=== PATIENT | female | born 1975 | race Caucasian/White ===

== ENCOUNTER 2016-07-03 21:41 | Inpatient (IN) | payer MEDICAID ==
[~2016-07-03] VITALS: Ht 154.9 cm; Wt 95.1 kg
[~2016-07-03 21:41] MED LIST: CALC-143 PO; FERR27TA PO; PREN1TAB49 PO
[2016-07-03 21:48] VITALS: BP 145/85; PULSE 77; RESP 20; Ht 154.9 cm; Wt 95.1 kg
[2016-07-03] MEDS ORDERED: OXYTOCIN 30 UNITS/LR 500 ML IV SCH ×2 (23:00)
[2016-07-03] MEDS ORDERED: LACTATED RINGER'S 1,000 ML IV PRN (23:00)
[2016-07-03] MEDS ORDERED: BUTORPHANOL 2 MG INJ IV PRN ×2 (23:00)
[2016-07-03] MEDS ORDERED: MISOPROSTOL 200 MCG TAB PR PRN (23:00)
[2016-07-03] MEDS ORDERED: AMPICILLIN 2 GM/NS (PMX) 100 ML IV ONE (23:00)
[2016-07-03] MEDS ORDERED: LIDOCAINE 1% (MPF) 30 ML INJ INJ PRN (23:00)
[2016-07-03] MEDS ORDERED: ACETAMINOPHEN/CODEINE #3 TAB PO PRN (23:00)
[2016-07-03] MEDS ORDERED: OXYTOCIN 30 UNITS/LR 500 ML IV PRN (23:00)
[2016-07-03] MEDS ORDERED: METHYLERGONOVINE 0.2 MG INJ IM PRN (23:00)
[2016-07-03] MEDS ORDERED: IBUPROFEN 600 MG TAB PO PRN (23:00)
[2016-07-03] MEDS ORDERED: CARBOPROST 250 MCG INJ IM PRN (23:00)
[2016-07-03] MEDS: LACTATED RINGER'S 1,000 ML IV SCH (23:07)
[2016-07-03 23:42] LABS: BASOPHILS % 0.2 % (0.0-2.0); EOSINOPHILS # 0.1 10^3/ul (0.0-0.5); EOSINOPHILS % 1.5 % (0.0-7.0); HEMATOCRIT 36.4 % (37.0-47.0); HEMOGLOBIN 12.5 g/dl (12.0-16.0); LYMPHOCYTES # 1.4 10^3/ul (0.8-2.9); LYMPHOCYTES % 20.4 % (15.0-51.0); MEAN CORPUSCULAR HEMOGLOBIN 30.7 pg (29.0-33.0); MEAN CORPUSCULAR HGB CONC 34.2 g/dl (32.0-37.0); MEAN CORPUSCULAR VOLUME 89.6 fl (82.0-101.0); MEAN PLATELET VOLUME 8.3 fl (7.4-10.4); MONOCYTE # 0.5 10^3/ul (0.3-0.9); MONOCYTES % 7.9 % (0.0-11.0); NEUTROPHIL # 4.8 10^3/ul (1.6-7.5); PLATELET COUNT 235 10^3/UL (140-440); RED BLOOD COUNT 4.06 10^6/ul (4.20-5.40); RED CELL DISTRIBUTION WIDTH 14.6 % (11.5-14.5); UNCORRECTED WBC 6.8 10^3/ul (4.8-10.8); WHITE BLOOD COUNT 6.8 10^3/ul (4.8-10.8)
[2016-07-03 23:43] LABS: ADD UMIC YES; URINE BILIRUBIN (Dip) NEGATIVE (NEGATIVE); URINE BLOOD (Dip) 1+ (NEGATIVE); URINE COLOR LT. YELLOW (YELLOW); URINE GLUCOSE (Dip) NEGATIVE (NEGATIVE); URINE KETONES (Dip) NEGATIVE (NEGATIVE); URINE LEUKOCYTE ESTERASE (Dip) NEGATIVE (NEGATIVE); URINE NITRITE (Dip) NEGATIVE (NEGATIVE); URINE TOTAL PROTEIN (Dip) 1+ (NEGATIVE); URINE UROBILINOGEN (Dip) 0.2 E.U./dL (0.1-1.0)
[2016-07-03 23:46] LABS: CONDITION 1; LH ANALYZER COMMENTS 1
[2016-07-03 23:50] LABS: ALBUMIN 3.6 g/dl (3.3-4.9)
[2016-07-03 23:51] LABS: POTASSIUM 4.3 mmol/L (3.5-5.1)
[2016-07-03 23:52] LABS: INR 0.86; PARTIAL THROMBOPLASTIN TIME 26.4 Sec (25.0-35.0); PROTIME 11.7 Sec (12.2-14.2); PT RATIO 0.9
[2016-07-03 23:53] LABS: ALBUMIN/GLOBULIN RATIO 1.02; CALCIUM 9.2 mg/dl (8.4-10.2); CREATININE 0.6 mg/dl (0.44-1.00); TOTAL PROTEIN 7.1 g/dl (6.1-8.1)
[2016-07-04 00:28] LABS: BACTERIA,URINE FEW; SQUAMOUS EPITHELIAL CELL,UR MANY
--- NOTE | 2016-07-04 01:27 | TRIAGE ---
OB Triage Datetime Report Generated by CPN: 07/04/2016 01:27 Datetime: 07/04/2016 01:04 Vaginal Exam Dilatation (cms): 4.5 Effacement (%): 90 Station: -2 Exam By: NEWTON F. Membrane Status: Bulging Vaginal Bleeding: None Cervix, Consistency: Moderate Cervix, Position: Midposition Presentation 'A': Cephalic Datetime: 07/04/2016 01:02 Labor Evaluation Frequency: 3-4 Monitor Mode: External Duration (sec)2399: 50-60 Quality: Moderate Pattern: Normal: <= 5 Contractions in 10 Minutes Resting Tone [place]: Relaxed Contraction Comments: LONGER AND STRONGER UTCS REPORTED PER PT Datetime: 07/04/2016 00:35 Assessment Type: Admission Assessment Vaginal Bleeding: None Maternal Assessment Level of Consciousness: Fully Conscious DTR's/Clonus: DTRs 2+; No Clonus Headache: Denies Blurred Vision: No Respiratory Effort: Unlabored; Regular Rhythm; Equal Expansion Breath Sounds, Left: Clear and Equal Breath Sounds, Right: Clear and Equal Nausea/Vomiting: Denies RUQ Epigastric Pain: Denies Lower Extremities Edema: Bilateral Lower Extremities Degree: 1+ Upper Extremities Edema: None Degree: None Facial Edema: None Fall Risk Assessment History of Falling: (0) No Secondary Diagnosis: (0) No Ambulatory Aid: (0) Bedrest/Nurse Assist IV Therapy: (20) Yes Gait: (0) Normal/Bedrest/Immobile Mental Status: (0) Oriented to Own Ability Fall Score: 20 Fall Risk Score Definition: No Risk: No action required Labor Evaluation Frequency: 5-6 Duration (sec)2399: 40-50 Quality: Moderate Pattern: Normal: <= 5 Contractions in 10 Minutes Resting Tone [place]: Relaxed Heart Rate FHR Baseline Rate: 140 Variability: Moderate 6-25 bpm Accelerations: 15X15 Decelerations: None Category: Category I Pain Assessment Pain Scale: 8 Pain Presence: Intermittent Pain Type: Cramping; Contraction Pain Location: Abdomen; Back Pain Goal: 2 Vaginal Exam Dilatation (cms): 4.0 Effacement (%): 80 Station: -2 Membrane Status: Intact Datetime: 07/04/2016 00:06 Stage of : Labor Maternal Assessment Level of Consciousness: Fully Conscious DTR's/Clonus: DTRs 2+ Blurred Vision: No Respiratory Effort: Unlabored Breath Sounds, Left: Clear and Equal Breath Sounds, Right: Clear and Equal Nausea/Vomiting: Denies RUQ Epigastric Pain: Denies Labor Evaluation Frequency: 5 Monitor Mode: External Duration (sec)2399: 40-50 Quality: Moderate Pattern: Normal: <= 5 Contractions in 10 Minutes Resting Tone [place]: Relaxed Heart Rate FHR Baseline Rate: 130 Monitor Mode: External US FHR Baseline Changes: No Baseline Change Variability: Moderate 6-25 bpm Accelerations: 15X15 Decelerations: None Category: Category I Pain Assessment Pain Scale: 8 Pain Presence: Intermittent Pain Type: Dull; Ache Pain Location: Abdomen; Back Pain Goal: 2 Pain Relief Measures: Comfort Measures Membrane Status: Intact Datetime: 07/03/2016 23:10 Stage of : OB Triage Labor Evaluation Frequency: 3-7 Monitor Mode: External Duration (sec)2399: 80-150 Pattern: Normal: <= 5 Contractions in 10 Minutes Resting Tone [place]: Relaxed Heart Rate FHR Baseline Rate: 135 Monitor Mode: External US Variability: Moderate 6-25 bpm Accelerations: 15X15 Decelerations: None Category: Category I Datetime: 07/03/2016 22:57 Monitor Mode: External (Annotations: REAPPLIED) Monitor Mode: External US (Annotations: REAPPLIED) Datetime: 07/03/2016 22:09 Vaginal Exam Dilatation (cms): 4.0 Effacement (%): 80 Station: -2 Exam By: TAMIA Strong RN Membrane Status: Intact Vaginal Bleeding: None Cervix, Consistency: Soft Cervix, Position: Posterior Datetime: 07/03/2016 22:08 Labor Evaluation Frequency: 3-5 Monitor Mode: External Duration (sec)2399: 80-150 Pattern: Normal: <= 5 Contractions in 10 Minutes Resting Tone [place]: Relaxed Heart Rate FHR Baseline Rate: 130 Monitor Mode: External US Variability: Moderate 6-25 bpm Accelerations: 15X15 Decelerations: None Category: Category I Datetime: 07/03/2016 21:52 Time of Arrival: 07/03/2016 23:00 EGA: 40.3 Arrived By: Wheelchair Arrived From: Home Chief Complaint: CONTRACTIONS SINCE 0530 [id number] Movement: Present Contractions: Regular Time Contractions Began: 07/03/2016 05:30 Contractions: Q10MIN PER PT Rupture of Membranes: Denies Vaginal Bleeding: None Vaginal Discharge: Denies Recent Sexual Intercouse: Denies Abdominal Trauma: Not Applicable Patient Complaints: Contractions Additional Patient Complaints: HX X1 Time Provider Notified: 07/03/2016 22:35 Provider Notified: RODNEY Initial Plan: EFM X2, SVE Presentation 'A': Cephalic Datetime: 07/03/2016 21:48 Stage of : OB Triage Assessment Type: Triage Maternal Assessment Level of Consciousness: Fully Conscious DTR's/Clonus: DTRs 2+; No Clonus Headache: Denies Blurred Vision: No Respiratory Effort: Unlabored; Regular Rhythm; Equal Expansion Breath Sounds, Left: Clear and Equal Breath Sounds, Right: Clear and Equal Nausea/Vomiting: Denies RUQ Epigastric Pain: Denies Lower Extremities Edema: None Degree: None Upper Extremities Edema: None Degree: None Facial Edema: None Temperature Route: Oral Fall Risk Assessment History of Falling: (0) No Secondary Diagnosis: (0) No Ambulatory Aid: (0) Bedrest/Nurse Assist IV Therapy: (0) No Gait: (0) Normal/Bedrest/Immobile Mental Status: (0) Oriented to Own Ability Fall Score: 0 Fall Risk Score Definition: No Risk: No action required Pain Assessment Pain Scale: 8 Pain Presence: Intermittent Pain Type: Contraction Pain Location: Abdomen Pain Relief Measures: Comfort Measures Datetime: 07/03/2016 21:46 Monitor Mode: External (Annotations: APPLIED) Monitor Mode: External US (Annotations: APPLIED)
[2016-07-04] MEDS ORDERED: FENTAnyl 2MCG/ML-ROPIV 0.2% 100 ML ONE (02:47)
[2016-07-04] MEDS: LACTATED RINGER'S 1,000 ML IV SCH ×3 (02:56→10:33)
[2016-07-04] MEDS: AMPICILLIN 1 GM/NS (PMX) 50 ML IV SCH ×3 (03:30→11:06)
[2016-07-04] MEDS ORDERED: NALOXONE (0.4 MG/ML) INJ IV PRN (03:30)
[2016-07-04] MEDS: FENTAnyl 2MCG/ML-ROPIV 0.2% 100 ML BAG EPI SCH ×2 (10:51→10:54)
[2016-07-04] MEDS ORDERED: GENTAMICIN 120 MG/NS (PMX) 100 ML IVPB STA (12:43)
[2016-07-04] MEDS ORDERED: MINERAL OIL LIGHT 10 ML VIAL TOP STA (12:58)
--- NOTE | 2016-07-04 14:09 | HP ---
Date/Time of Note Date/Time of Note DATE: 07/04/16 TIME: 14:04 OB - History Hx of Present Free Text/Dictation admitted in labor at term Estimated Due Date: Jun 30, 2016 : 3 Para: 2 Care: Good Care Ultrasounds: Normal mid trimester US Obstetrical Complications: None Medical Complications: Other (previous C/S X 1 with subsequent vaginal delivery ) Past Family/Social History * Past Medical, Surgical, Family and Obstetric Histories reviewed from chart. Blood Type: A+ Rubella: immune RPR/VDRL: Negative GBS Status: Unknown HBsAG: Negative OB Admission Exam Vital Signs Vital Signs Vital Signs Date Time Temp Pulse Resp B/P Pulse Ox O2 Delivery O2 Flow Rate FiO2 07/03/16 21:48 98.1 77 20 145/85 Room Air Physical Exam HEENT: WNL Heart: Rhythm Normal Lungs: Clear, Equal Abdomen: WNL Extremities: Normal Reflexes: Normal Cervical Dilatation: 4cm Effacement: 100% Station: -3 Membranes: Intact Heart Rate: 130's Accelerations: Accelerations Present Decelerations: No Decelerations Varibility: Moderate Contractions on Admission: < 5 Minutes Apart Date/Time Contractions Began: 07/03/2016 Frequency of Contractions: q 5 Duration: >60 seconds Intensity: Moderate Last 72 hours Lab Results CBC & BMP 07/03/16 23:00 Liver Function Test 07/03/16 23:00 Alanine Aminotransferase (ALT/SGPT) 17 Albumin 3.6 Alkaline Phosphatase 216 H Aspartate Amino Transf (AST/SGOT) 17 Direct Bilirubin 0.00 Total Protein 7.1 OB Assessment/Plan Reason for admission: active labor Other Assessment: term gestation previous C/S X 1: S/P desires Other plan: proceed with labor BRANDO RIDLEY MD Jul 04, 2016 14:09
--- NOTE | 2016-07-04 14:14 | LDN ---
Date/Time of Note Date/Time of Note DATE: 07/04/16 TIME: 14:10 Delivery Summary and of a viable over intact perineum Placenta Delivered: Spontaneously, Intact & Complete Meconium: Light Perineum intact?: No Perineal laceration: 2 Perineal laceration repair: 2nd degree perineal laceration was repaired with 2 0 Vicryl and 2 0 Chromic Estimated blood loss: 300 Sponge & Needle done & correct: Yes All needle counts correct: Yes Any foreign bodies felt in the: No Problems: Delivery Information Sex Sex: male Apgars 1 Minute: 9 5 Minute: 9 Suctioning Nose & mouth suctioned at preet: Yes Delee suction performed: No Umbilical Cord Umbilical cord with: 3 Vessels Cord presentations: no nuchal cord Cord Blood was obtained: Yes Mother & Baby Disposition Disposition Mom & Baby to Maternity; Good: Yes (mother and baby were recovered in good condition ) Mom transferred to: Other (maternity ) Baby to NICU: Yes BRANDO RIDLEY MD Jul 04, 2016 14:14
[2016-07-04] MEDS ORDERED: ACETAMINOPHEN 325 MG TAB PO STA (14:50)
[2016-07-04 16:30] VITALS: BP 126/74; PULSE 91; RESP 20
[2016-07-04] MEDS ORDERED: LACTATED RINGER'S 1,000 ML IV* SCH (17:22)
[2016-07-04] MEDS ORDERED: WITCH HAZEL/GLYCERIN PAD PR PRN (17:30)
[2016-07-04] MEDS ORDERED: MISOPROSTOL 200 MCG TAB PR PRN (17:30)
[2016-07-04] MEDS ORDERED: LANOLIN 7 GM TUBE TOP PRN (17:30)
[2016-07-04] MEDS ORDERED: OXYTOCIN 30 UNITS/LR 500 ML IV PRN (17:30)
[2016-07-04] MEDS ORDERED: CARBOPROST 250 MCG INJ IM PRN (17:30)
[2016-07-04] MEDS ORDERED: ZOLPIDEM 5 MG TAB PO PRN (17:30)
[2016-07-04] MEDS ORDERED: DIBUCAINE 1% 30 GM OINT TOP PRN (17:30)
[2016-07-04] MEDS ORDERED: ACETAMINOPHEN/CODEINE #3 TAB PO PRN ×2 (17:30)
[2016-07-04] MEDS ORDERED: METHYLERGONOVINE 0.2 MG INJ IM PRN (17:30)
[2016-07-04] MEDS ORDERED: BENZOCAINE 20% 56 ML SPRAY TOP PRN (17:30)
[2016-07-04] MEDS: IBUPROFEN 600 MG TAB PO SCH ×2 (18:00→23:44)
[2016-07-04] MEDS: AMPICILLIN/SULB 3 GM/NS (PMX) 100 ML IVPB SCH ×2 (18:49→23:44)
[2016-07-04 19:45] VITALS: BP 122/64; PULSE 82; RESP 18
[2016-07-04] MEDS: MAGNESIUM HYDROXIDE 30ML CUP PO SCH (20:50)
[2016-07-04] MEDS: SENNA/DOCUSATE NA (8.6MG/50MG) TAB PO SCH (20:50)
[2016-07-05] VITALS: BP 140/75; PULSE 82; RESP 18
[2016-07-05 03:45] VITALS: BP 109/62; PULSE 79; RESP 18
[2016-07-05] MEDS: AMPICILLIN/SULB 3 GM/NS (PMX) 100 ML IVPB SCH ×4 (05:47→23:59)
[2016-07-05] MEDS: IBUPROFEN 600 MG TAB PO SCH ×4 (05:47→23:59)
[2016-07-05 07:45] VITALS: BP 121/58; PULSE 80; RESP 18
[2016-07-05 08:30] LABS: BASOPHILS % 0.2 % (0.0-2.0); EOSINOPHILS # 0.1 10^3/ul (0.0-0.5); EOSINOPHILS % 0.8 % (0.0-7.0); HEMOGLOBIN 10.3 g/dl (12.0-16.0); LYMPHOCYTES # 1.2 10^3/ul (0.8-2.9); LYMPHOCYTES % 10.9 % (15.0-51.0); MEAN CORPUSCULAR HEMOGLOBIN 30.6 pg (29.0-33.0); MEAN CORPUSCULAR HGB CONC 34.2 g/dl (32.0-37.0); MEAN CORPUSCULAR VOLUME 89.5 fl (82.0-101.0); MONOCYTE # 0.4 10^3/ul (0.3-0.9); MONOCYTES % 3.8 % (0.0-11.0); NEUTROPHIL # 9.6 10^3/ul (1.6-7.5); NEUTROPHILS % 84.3 % (39.0-77.0); PLATELET COUNT 199 10^3/UL (140-440); RED BLOOD COUNT 3.35 10^6/ul (4.20-5.40); RED CELL DISTRIBUTION WIDTH 15.2 % (11.5-14.5); UNCORRECTED WBC 11.4 10^3/ul (4.8-10.8); WHITE BLOOD COUNT 11.4 10^3/ul (4.8-10.8)
[2016-07-05 08:41] LABS: CONDITION 1; LH ANALYZER COMMENTS 1
[2016-07-05] MEDS: MAGNESIUM HYDROXIDE 30ML CUP PO SCH ×2 (09:00→21:00)
[2016-07-05] MEDS: SENNA/DOCUSATE NA (8.6MG/50MG) TAB PO SCH ×2 (09:00→21:00)
--- NOTE | 2016-07-05 15:27 | DS ---
Date/Time of Note Date/Time of Note home next day DATE: 07/05/16 TIME: 15:25 Obstetrical Discharge Record Final Diagnosis Final Diagnosis: Term delivered Other Final Diagnosis S/P Vaginal Delivery Obstetrical Delivery: Spontaneous, Laceration, Repaired, Successful Condition on Discharge Physical Assessment Last Vitals: see nurses notes Voiding: Yes Bowel Movement: Yes Breast: Soft, non-tender, Filling Fundus: Firm Abdomen and Incision: soft BS + Episiotomy: NA perineum: Healing Calf Tenderness: No Patient Condition: Good BRANDO RIDLEY MD Jul 05, 2016 15:27
[2016-07-05 15:30] VITALS: BP 128/67; PULSE 81; RESP 19
--- NOTE | 2016-07-05 16:56 | PD.PPDC ---
[employer] Discharge Instruction Provider Information Physician Information admitted in labor and had Diagnosis Final Diagnosis: S/P vaginal delivery Condition Patient Condition: Good Diet Diet: Resume Regular Diet Activity/Restrictions Activity: Normal Activity May Shower Restrictions: Nothing in the Vagina Return to Work or School: Aug 22, 2016 Follow-up Follow-up with Physician: 4, Week/Weeks (in clinic) Return to clinic for OB Instructions: Breast Tenderness Depression BRANDO RIDLEY MD Jul 05, 2016 16:56
[2016-07-05] MEDS ORDERED: IBUP-1542 PO (16:57)
[2016-07-05 20:10] VITALS: BP 140/78; PULSE 89; RESP 16
[2016-07-06 04:15] VITALS: BP 113/61; PULSE 70; RESP 18
[2016-07-06] MEDS: IBUPROFEN 600 MG TAB PO SCH ×2 (06:04→11:34)
[2016-07-06] MEDS: AMPICILLIN/SULB 3 GM/NS (PMX) 100 ML IVPB SCH (06:04)
[2016-07-06 08:00] VITALS: BP 122/80; PULSE 67; RESP 18
[2016-07-06] MEDS: MAGNESIUM HYDROXIDE 30ML CUP PO SCH (09:00)
[2016-07-06] MEDS ORDERED: DIPHTH/TET/ACEL PERTUSS (ADULT) 0.5 ML VIAL IM* ONE (09:00)
[2016-07-06] MEDS ORDERED: MEASLES,MUMPS,RUBELLA VACCINE INJ SC* ONE (09:00)
[2016-07-06] MEDS ORDERED: VARICELLA VACCINE LIVE/PF 1,350 UNIT/0.5 ML ML SC* ONE (09:00)
[2016-07-06] MEDS: SENNA/DOCUSATE NA (8.6MG/50MG) TAB PO SCH (09:00)
[2016-07-06 09:26] LABS: BASOPHILS % 0.3 % (0.0-2.0); EOSINOPHILS # 0.2 10^3/ul (0.0-0.5); EOSINOPHILS % 2.3 % (0.0-7.0); HEMATOCRIT 29.9 % (37.0-47.0); HEMOGLOBIN 10.3 g/dl (12.0-16.0); LYMPHOCYTES # 1.4 10^3/ul (0.8-2.9); LYMPHOCYTES % 17.3 % (15.0-51.0); MEAN CORPUSCULAR HEMOGLOBIN 31.1 pg (29.0-33.0); MEAN CORPUSCULAR HGB CONC 34.4 g/dl (32.0-37.0); MEAN CORPUSCULAR VOLUME 90.4 fl (82.0-101.0); MEAN PLATELET VOLUME 7.9 fl (7.4-10.4); MONOCYTE # 0.4 10^3/ul (0.3-0.9); MONOCYTES % 5.6 % (0.0-11.0); NEUTROPHIL # 5.8 10^3/ul (1.6-7.5); NEUTROPHILS % 74.5 % (39.0-77.0); PLATELET COUNT 200 10^3/UL (140-440); RED BLOOD COUNT 3.31 10^6/ul (4.20-5.40); UNCORRECTED WBC 7.8 10^3/ul (4.8-10.8); WHITE BLOOD COUNT 7.8 10^3/ul (4.8-10.8)
[2016-07-06 09:27] LABS: CONDITION 1; LH ANALYZER COMMENTS 1
== END 2016-07-06 14:05 | disposition home or self-care (01) | DRG 775 ==
LOC: OBT 21:41 → L-D 21:44 → OBT 22:35 → L-D 23:48 → PP1 07-04 16:29
PROVIDERS: ADMIT Obstetrics & Gynecology; ATTEND Obstetrics & Gynecology
PROC: 10E0XZZ Delivery of Products of Conception, External Approach (ICD-10-PCS; principal; 2016-07-04)
PROC: 0KQM0ZZ Repair Perineum Muscle, Open Approach (ICD-10-PCS; 2016-07-04)
DX: O48.0 Post-term pregnancy (principal); O34.211 Maternal care for low transverse scar from previous cesarean delivery; Z3A.40 40 weeks gestation of pregnancy; O70.1 Second degree perineal laceration during delivery; Z37.0 Single live birth
CPT/HCPCS: 36415; 62319; 80053; 81001; 81003; 84560; 85025; 85610; 85730; 86592; 86850; 86900; 86901; 86920; 90715; 90716; G0463; J0290; J0295; J1580; J2590; J3010; J7120